=== PATIENT | female | born 2000 | race Caucasian/White ===

== ENCOUNTER 2022-04-24 02:58 | Inpatient (IN) | payer OTHER, BC, SELFPAY ==
[2022-04-24] VITALS (85 sets, daily range): BP systolic 90–141; BP diastolic 34–89; PULSE 49–112; RESP 14–20; TEMP 36.3–37.4; O2SAT 91–100; BMI 21.4
[2022-04-24] MEDS: LACTATED RINGERS 1,000 ML 125 ML IV CONT ×2 (03:37→04:30)
[2022-04-24] MEDS: AMPICILLIN 2 GM/NS 100 ML 2 GM/100 ML BAG IVPB (03:40)
[2022-04-24 03:50] LABS: Basophils Absolute Auto 0.1 K/mm3 (0.0-0.1); Basophils Percent Auto 0.3 % (0.2-1.2); Eosinophils Absolute Auto 0.3 K/mm3 (0-0.3); Eosinophils Percent Auto 1.5 % (0-4.4); Hematocrit 36.7 % (37.0-47.0); Hemoglobin 12.7 g/dL (12.0-15.0); Immature Granulocyte Absolute 0.15 K/mm3 (0.00-0.031); Immature Granulocyte Percent A 0.8 % (0-0.5); Lymphocytes Percent Auto 9.2 % (18.3-44.2); Mean Corpuscular HGB Conc 34.6 g/dl (32-36); Mean Corpuscular Hemoglobin 32.4 pg (26-34); Mean Corpuscular Volume 93.6 fl (80-100); Mean Platelet Volume 10.5 fl (7.4-10.4); Monocytes Percent Auto 5.3 % (2.6-8.5); Neutrophils Absolute Auto 15.3 K/mm3 (1.3-6.7); Neutrophils Percent Auto 82.9 % (45.5-73.1); Platelet Count Result 203 k/mm3 (150-375); Red Blood Count 3.92 M/mm3 (4.2-5.4); Red Cell Distribution Width 12.6 % (11.5-14.5); White Blood Count 18.4 K/mm3 (4.5-10.0)
--- NOTE | 2022-04-24 03:52 | LDADM ---
This patient, Jennifer Gould, was admitted to Labor/Delivery/Recovery 109 on 04/24/22 at 02:58. Plans for labor, pain management and were discussed with patient. Patient/family oriented to hospital policies and general routines including ID bracelet, bed and alarms, visiting hours, pain management, procedures, bathroom and other care routines, personal items, smoking policy, room service/diet and guest tray routines, security routines, and visiting hours. Patient/Family are encouraged to report perceived risks to care and to ask questions if they do not understand what they are told or what they should do. See OBIX for further documentation.
--- NOTE | 2022-04-24 04:05 | WPDANESEPP ---
Anes - Eval Pre Procedure Procedure: labor epidural Date/Time: 04/24/22 04:05 Pre Op Diagnosis: Labor Patient Data Age: 21 Gender: F Height: 1.73 m Weight: 64 kg Last Vital Signs Pulse 63 04/24/22 03:45 BP 99/51 L 04/24/22 03:45 Allergies Allergy/AdvReac Type Severity Reaction Status Date / Time BLUEBERRIES Allergy Uncoded 11/27/11 13:26 Home Medications Medication Instructions Recorded Confirmed Type prenat.vits,selin,kkq-lxpy-pbtif 1 tablet PO DAILY 04/24/22 04/24/22 History Laboratory Tests 04/24/22 04/24/22 04/24/22 03:31 03:31 03:31 WBC 18.4 K/mm3 H K/mm3 (4.5-10.0) RBC 3.92 M/mm3 L M/mm3 (4.2-5.4) Hgb 12.7 g/dL g/dL (12.0-15.0) Hct 36.7 % L % (37.0-47.0) MCV 93.6 fl fl (80-100) MCH 32.4 pg pg (26-34) MCHC 34.6 g/dl g/dl (32-36) RDW 12.6 % % (11.5-14.5) Plt Count 203 k/mm3 k/mm3 (150-375) MPV 10.5 fl H fl (7.4-10.4) Immature Gran % (Auto) 0.8 % H % (0-0.5) Neut % (Auto) 82.9 % H % (45.5-73.1) Lymph % (Auto) 9.2 % L % (18.3-44.2) [place] % (Auto) 5.3 % % (2.6-8.5) Eos % (Auto) 1.5 % % (0-4.4) Baso % (Auto) 0.3 % % (0.2-1.2) Lymph # (Auto) 1.70 K/mm3 K/mm3 (0.9-3.2) [place] # (Auto) 1.0 K/mm3 H K/mm3 (0.1-0.6) Eos # (Auto) 0.3 K/mm3 K/mm3 (0-0.3) Baso # (Auto) 0.1 K/mm3 K/mm3 (0.0-0.1) Abs Immat Gran (auto) 0.15 K/mm3 H K/mm3 (0.00-0.031) Absolute Neuts (auto) 15.3 K/mm3 H K/mm3 (1.3-6.7) Absolute Nucleated RBC 0.0 K/mm3 K/mm3 (0.0-0.012) Nucleated RBC % 0.0 % % (0.0-0.2) RPR Pending Hep Bs Antigen Rubella IgG Antibody Pending 04/24/22 03:31 WBC RBC Hgb Hct MCV MCH MCHC RDW Plt Count MPV Immature Gran % (Auto) Neut % (Auto) Lymph % (Auto) [place] % (Auto) Eos % (Auto) Baso % (Auto) Lymph # (Auto) [place] # (Auto) Eos # (Auto) Baso # (Auto) Abs Immat Gran (auto) Absolute Neuts (auto) Absolute Nucleated RBC Nucleated RBC % RPR Hep Bs Antigen Pending Rubella IgG Antibody Patient hx anesthesia problems: none Family hx anesthesia problems: none Results Review: All pre-operative results and documents have been reviewed as part of the pre-operative evaluation. [facility] Past Medical History Medical History (Updated 04/24/22 @ 04:08 by Lizzy Langley CRNA) Anxiety Exam Day of Procedure 04/24/22 04:05 Patient weight: normal Heart: regular rate and rhythm Lungs: clear to auscultation Airway: Mallampati scale class II Neurological: alert and oriented
[2022-04-24 05:07] LABS: Hepatitis B Surface Antigen Negative (Negative)
[2022-04-24 05:09] LABS: Rubella IgG Antibody 32.5 IU/ML
--- NOTE | 2022-04-24 06:24 | PM.OBPRVD ---
OB - Delivery Note Procedure Delivery date: 04/24/22 Events: Positive Group B Strep (GBS) Induction method: None Delivery monitor: External FHT Route of delivery: Episiotomy description: None Laceration Description: Perineal - 1st Degree Delivery repair: vicryl Specimen: No Quantitative Blood Loss (ml): 59 Anesthesia type: Epidural Disposition: Floor [place] Baby Date of : 04/24/22 Time of : 06:14 Weeks of gestation at delivery: 37 Infant gender: Male Weight (pounds): 5 Weight (ounces): 1 presentation: vertex position: Right Occiput Anterior Placenta delivery description: Spontaneous Cord Vessel Description: 3 Vessels, Nuchal Cord (x2) and Loose score one minute: 8 score five minutes: 9 Narrative: amp x 1 for gbs
--- NOTE | 2022-04-24 06:27 | PM.IMHP ---
H&P: HPI History of Present Illness Date/Time: 04/24/22 06:27 Chief Complaint: Labor at 37 weeks Narrative: this is a 21-year-old 2 para 1 whose last menstrual period was 08/04/2021. EDC is 05/12/2022. Presents at37+ weeks gestation with spontaneous rupture membranes in active labor. She is positive for group B strep and will be prophylaxed but is advanced cervical dilatation. Her has been complicated by echogenic bowel and potential lateral ventricle enlargement. The group B strep screen was positive [facility] Past Medical History Medical History Anxiety Social History Social History Smoking status: Never smoker Substance use: never Spiritual care concerns: No Meds Home Medications and Allergies Home Medications Medication Instructions Recorded Confirmed Type prenat.vits,selin,nqh-nlwx-xznur 1 tablet PO DAILY 04/24/22 04/24/22 History Allergies Allergy/AdvReac Type Severity Reaction Status Date / Time BLUEBERRIES Allergy Uncoded 11/27/11 13:26 Vital Signs Vital Signs - 24 hr 04/24/22 03:43 04/24/22 03:45 04/24/22 04:11 Temperature 99.3 F Pulse Rate 62 63 Blood Pressure 108/52 L 99/51 L Pulse Oximetry 100 Oxygen Delivery 04/24/22 04:14 04/24/22 04:16 04/24/22 04:20 Temperature Pulse Rate 84 64 Blood Pressure 120/75 123/67 Pulse Oximetry 100 Oxygen Delivery 04/24/22 04:21 04/24/22 04:23 04/24/22 04:25 Temperature Pulse Rate 68 64 61 Blood Pressure 123/81 126/62 124/59 L Pulse Oximetry 100 Oxygen Delivery 04/24/22 04:26 04/24/22 04:28 04/24/22 04:30 Temperature Pulse Rate 65 65 Blood Pressure 118/66 121/58 L Pulse Oximetry 100 Oxygen Delivery 04/24/22 04:31 04/24/22 04:33 04/24/22 04:35 Temperature Pulse Rate 73 61 Blood Pressure 121/69 113/60 Pulse Oximetry 99 Oxygen Delivery 04/24/22 04:36 04/24/22 04:38 04/24/22 04:40 Temperature Pulse Rate 65 70 Blood Pressure 118/67 118/67 Pulse Oximetry 100 Oxygen Delivery 04/24/22 04:41 04/24/22 04:43 04/24/22 04:45 Temperature Pulse Rate 69 64 Blood Pressure 112/59 L 111/51 L Pulse Oximetry 100 Oxygen Delivery 04/24/22 04:46 04/24/22 04:48 04/24/22 04:50 Temperature Pulse Rate 67 68 Blood Pressure 119/60 115/59 L Pulse Oximetry 100 Oxygen Delivery 04/24/22 04:51 04/24/22 04:53 04/24/22 04:55 Temperature Pulse Rate 69 63 Blood Pressure 111/58 L 114/66 Pulse Oximetry 100 Oxygen Delivery 04/24/22 04:56 04/24/22 05:00 04/24/22 05:01 Temperature Pulse Rate 75 Blood Pressure 120/71 Pulse Oximetry 99 100 Oxygen Delivery 04/24/22 05:06 04/24/22 05:11 04/24/22 05:15 Temperature Pulse Rate 59 L Blood Pressure 100/50 L Pulse Oximetry 100 100 Oxygen Delivery 04/24/22 05:16 04/24/22 05:21 04/24/22 05:26 Temperature Pulse Rate Blood Pressure Pulse Oximetry 100 100 100 Oxygen Delivery 04/24/22 05:31 04/24/22 05:36 04/24/22 05:41 Temperature Pulse Rate 61 Blood Pressure 90/34 L Pulse Oximetry 100 100 100 Oxygen Delivery 04/24/22 05:45 04/24/22 05:46 04/24/22 05:51 Temperature Pulse Rate 112 H Blood Pressure 104/82 Pulse Oximetry 100 100 Oxygen Delivery 04/24/22 05:56 04/24/22 06:01 04/24/22 06:06 Temperature Pulse Rate 57 L Blood Pressure 98/46 L Pulse Oximetry 100 100 100 Oxygen Delivery 04/24/22 06:11 04/24/22 06:13 04/24/22 06:15 Temperature Pulse Rate 85 Blood Pressure 141/89 H Pulse Oximetry 100 100 Oxygen Delivery 04/24/22 03:50 Temperature Pulse Rate Blood Pressure Pulse Oximetry Oxygen Delivery Room Air Exam Const: General: cooperative and healthy appearing Nutritional Appearance: average body habitus Orientation/consciousn
[2022-04-24] MEDS: OXYTOCIN 30 UNITS/NS 500 ML 30 UNITS/500 ML BAG 125 UNITS IV CONT (06:46)
[2022-04-24] MEDS: METHYLERGONOVINE MALEATE 0.2 MG/ML VIAL IM (07:21)
--- NOTE | 2022-04-24 09:45 | OBPPTRN ---
0918 Patient transferred to post room #288 via W/C. Support person present. Oriented to unit, room, information board, rooming in, admission packet and security measures. Patient verbalizes understanding.
[2022-04-24 10:39] LABS: Rapid Plasma Reagin Non-Reactive (NonReactive)
[2022-04-24] MEDS: IBUPROFEN 600 MG TABLET PO ×2 (11:05→20:42)
--- NOTE | 2022-04-24 15:50 | PC.NURSE ---
[id number] Introductions were made, then consulted with patient to assess needs related to . Mother led the conversation with her?plans to feed?her infant and the?experience so far while a visitor held the . Resources provided for inpatient and outpatient services using a resource guide and mom/baby guide. Mother voiced understanding of information and requested assistance. Encouraged understanding of the benefits of skin to skin and placed on father of baby's chest while mother went to use the restroom. Mother was instructed to call for assistance when she was done. Primary RN reported that mother held skin to skin, attempted to breastfeed, and hand expressed colostrum into her infants mouth at 1200.
[2022-04-25 01:45] VITALS: BP 100/57; PULSE 55; RESP 14; TEMP 36.6; O2SAT 98
[2022-04-25 05:32] VITALS: BP 102/69; PULSE 50; RESP 14; TEMP 36.7; O2SAT 98
[2022-04-25 07:24] VITALS: BP 86/59; PULSE 55; RESP 12; TEMP 36.7; O2SAT 99
--- NOTE | 2022-04-25 08:30 | PC.NURSE ---
Pt introductions made and plan of care discussed per post , pain management, breast feeding, daily care activities. PT and significant other both recipients of such instructions and no barriers to learning identified at this time. PT received such instructions per one to one discussion mom baby care guide and demonstrations this shift. PT verbalized understanding of such care,
[2022-04-25 09:00] VITALS: BP 95/62; PULSE 58; RESP 18; TEMP 36.6; O2SAT 100
--- NOTE | 2022-04-25 09:13 | WPDANLDPN2 ---
Anes-Prog Note L&D Date/Time: 04/25/22 09:13 Comfortable throughout: labor and delivery Neuraxial method: epidural Epidural/Spinal procedure site: clean & non-tender Neuro status: Neuro function grossly intact. Cardiovascular status: normal Respiratory status: normal Airway patency: baseline Mental status: baseline Post-Op hydration status: normal Vital Signs: Last Vital Signs Temp 98.1 F 04/25/22 07:24 Pulse 55 L 04/25/22 07:24 Resp 12 04/25/22 07:24 BP 86/59 L 04/25/22 07:24 Pulse Ox 99 04/25/22 07:24 O2 Del Method Room Air 04/24/22 20:45 Pain score (VAS): 0 Post-procedural complaints: none Patient feedback: Patient satisfied with anesthetic care.
[2022-04-25] MEDS: ACETAMINOPHEN 325 MG TABLET 650 MG PO (10:27)
[2022-04-25] MEDS: MULTIVIT/MIN/PREN/FOL AC/IRON TABLET 1 TAB PO ×2 (10:28→10:33)
[2022-04-25] MEDS: IBUPROFEN 600 MG TABLET PO (10:28)
[2022-04-25] MEDS: POLYSACCHARIDE IRON COMPLEX 150 MG CAPSULE PO (10:32)
[2022-04-25 11:32] LABS: Hematocrit 34.3 % (37.0-47.0); Hemoglobin 11.5 g/dL (12.0-15.0)
--- NOTE | 2022-04-25 11:54 | P.PNOB_ITS ---
OB - PN: Subj Subjective Date/time seen: 04/25/22 11:54 Narrative: Pain OK. Baby to be transferred to [facility], so the patient desires discharge to home. OB - PN: Obj Data Labs CBC & Chem 7: 04/25/22 11:25 Labs: Laboratory Results - last 24 hr 04/25/22 11:25 Hgb 11.5 L Hct 34.3 L OB - PN A/P Plan Comments: A: PPD#1, doing well. Desires circumcision. P: Reviewed circumcision. Home to f/u 6 weeks. Time Spent With Patient Time with patient: less than 15 minutes Exam Psych: Other: AVSS ABD soft, nontender, fundus firm EXT nontender
--- NOTE | 2022-04-25 11:56 | PM.OBDSVD ---
DS: Admitting Diagnosis Discharge Date 04/25/22 Admitting Diagnosis IUP at 37 weeks SROM with labor GBS colonization DS: Discharge Diagnosis Discharge Diagnosis (1) Group B streptococcal infection during : Code(s): O98.819 - Other maternal infectious and parasitic diseases complicating , unspecified trimester; B95.1 - Streptococcus, group B, as the cause of diseases classified elsewhere Status: Acute (2) Term : Code(s): Z34.90 - Encounter for supervision of normal , unspecified, unspecified trimester Status: Acute (3) (normal spontaneous vaginal delivery): Code(s): O80 - Encounter for full-term uncomplicated delivery Status: Acute OB - DS: Summary OB Procedures : None OB Procedures Intrapartum: Spontaneous Vag Delivery OB Procedures: : None Time Spent with Patient Time attestation: Total time spent providing and/or coordinating discharge services: DS: Data Data Completed and Pending Labs on day of discharge: Labs from last 24 hours 04/25/22 11:25 Hgb 11.5 L Hct 34.3 L Discharge Plan Discharge Attending physician on discharge: Nilay Bender Discharging Clinician: Nilay Bender Patient Disposition: Home, Self-Care Activity: pelvic rest Diet: regular Discharge Instructions: Call or return if temperature above 100.4? F, increased abdominal pain, increased vaginal bleeding or any new problems. Stand Alone Forms: General Discharge Information Follow-up/Referrals: Nilay Bender MD [Physician] - 6 Weeks Discharge Medications: New ibuprofen 600 mg tablet 600 mg PO Q6H PRN (Reason: cramps) Qty: 30 0RF Continued Vitamin Tablet 1 tablet PO DAILY Date of admission: 04/24/22 02:58 Primary Care Provider: PrakashBhavani Admitting Provider: Nilay Bender Attending physician on admission: Nilay Bender Condition: Stable
--- NOTE | 2022-04-25 13:30 | PC.NURSE ---
PT received discharge instructions per protocol and verbalized understanding of such care.
--- NOTE | 2022-04-25 14:10 | PC.NURSE ---
PT discharged to home ambulatory accompanied by fob and taken to waiting car. follow up appts confirmed
--- NOTE | 2022-04-25 16:24 | PC.NURSE ---
1901 - Primary RN David is in the room educating the patient. Pump and pump kit put in the room and education delegated to Primary RN. [id number] - Instructions given on cleaning, care, usage, that there should be no pain, pumping schedule for milk production, collection, and storage of human milk. Mother is about to be discharged to go visit her infant at [facility]. Mother's expressed human milk was stored, labeled and put on ice. Mother denies pain with pumping and was encouraged to take her pump kit and work with at [facility].
== END 2022-04-25 14:10 | disposition home or self-care (01) | DRG 807 ==
LOC: ANHLDR 04:40 → ANHOB2 09:50
PROVIDERS: Admitting Provider Obstetrics & Gynecology; PCP Family Medicine; Visit Provider Obstetrics & Gynecology
DX: O99.824 Streptococcus B carrier state complicating childbirth (principal); Z37.0 Single live birth; O70.0 First degree perineal laceration during delivery; O69.81X0 Labor and delivery complicated by cord around neck, without compression, not applicable or unspecified; O76 Abnormality in fetal heart rate and rhythm complicating labor and delivery; Z3A.37 37 weeks gestation of pregnancy
CPT/HCPCS: 36415; 85014; 85018; 85025; 86592; 86762; 86850; 86900; 86901; 87340; A9270; J0290; J2210; J2590; J2795; J7120